=== PATIENT | female | born 1980 | race African-American/Black ===

== ENCOUNTER 2019-04-14 10:42 | Emergency (ER) | payer OTHER ==
--- NOTE | 2019-04-14 11:44 | ER Document Report ---
ED Medical Screen (RME) - General Chief Complaint: Chest Pain Stated Complaint: CHEST PAIN,SHORT OF BREATH Time Seen by Provider: 04/14/19 11:38 Notes: Patient is a 38-year-old female who presents emergency department with a chief complaint of chest pain. Patient reports that this occurred about 1 week ago and has been intermittent. Patient denies any trauma. Patient reports it is intermittent and occurs when bending over. Patient reports she has developed some shortness of breath. Patient denies cough, fever, cold-like symptoms. Patient denies nausea, vomiting or diarrhea. Patient has not had anything for her discomfort. TRAVEL OUTSIDE OF THE [place] IN LAST 30 DAYS: No - Related Data Allergies/Adverse Reactions: No Known Allergies Allergy (Verified 04/14/19 11:31) Past Medical History - Social History Frequency of alcohol use: Occasional Drug Abuse: None Physical Exam - Vital signs Vitals: Temp Pulse Resp BP Pulse Ox 98.6 F 73 16 115/63 100 04/14/19 11:00 04/14/19 11:04/14/19 11:04/14/19 11:00 04/14/19 11:00 - Cardiovascular Rhythm: Regular Heart sounds: Normal auscultation, S1 appreciated, S2 appreciated Notes: Reproducible left chest wall pain. Course - Re-evaluation Re-evalutation: 04/14/19 11:44 I have greeted and performed a rapid initial assessment of this patient. A comprehensive ED assessment and evaluation of the patient, analysis of test results and completion of the medical decision making process will be conducted by additional ED providers. - Vital Signs Vital signs: Temp Pulse Resp BP Pulse Ox 98.6 F 73 16 115/63 100 04/14/19 11:00 04/14/19 11:04/14/19 11:04/14/19 11:04/14/19 11:00
--- NOTE | 2019-04-14 11:58 | ER Document Report ---
ED General - General Chief Complaint: Chest Pain Stated Complaint: CHEST PAIN,SHORT OF BREATH Time Seen by Provider: 04/14/19 11:38 Notes: 38 old female presents with left parasternal chest pain reproducible when she presses on it worse with deep breathing for about 2 to 3 days. Constant since this morning. No cough, short of breath this morning but only with the breathing. No leg swelling, no tobacco very rare, and no external hormones no history of PE or VTE. No injuries. No history of coronary disease. TRAVEL OUTSIDE OF THE [place] IN LAST 30 DAYS: No - Related Data Allergies/Adverse Reactions: No Known Allergies Allergy (Verified 04/14/19 11:31) Past Medical History - Social History Smoking Status: Never Smoker Frequency of alcohol use: Occasional Drug Abuse: None Family History: None Patient has suicidal ideation: No Patient has homicidal ideation: No Review of Systems - Review of Systems Notes: REVIEW OF SYSTEMS GEN: Denies fever, chills, weight loss ENT: Denies sore throat, nasal discharge, ear pain EYES: Denies blurry vision, eye pain, discharge CV: Chest pain RESP: Denies cough, shortness of breath, wheezing GI: Denies abdominal pain, nausea, vomiting, diarrhea MSK: Denies joint pain/swelling, edema, SKIN: Denies rash, skin lesions LYMPH: Denies swollen glands/lymph nodes NEURO: Denies headache, focal weakness or numbness, dizziness PSYCH: Denies depression, suicidal or homicidal ideation PHYSICAL EXAMINATION General: No acute distress, well-nourished Head: Atraumatic, normocephalic ENT: Mouth normal, oropharynx moist, no exudates or tonsillar enlargement Eyes: Conjunctiva normal, pupils equal, lids normal Neck: No JVD, supple, no guarding CVS: Normal rate, regular rhythm, no murmurs Resp: No resp distress, equal and normal breath sounds bilaterally, left parasternal chest tenderness GI: Nondistended, soft, no tenderness to palpation, no rebound or guarding Ext: No deformities, no edema, normal range of motion in upper and lower ext Back: No CVA or midline TTP Skin: No rash, warm Lymphatic: No lymphadeopathy noted Neuro: Awake, alert. Face symmetric. GCS 15. Physical Exam - Vital signs Vitals: Temp Pulse Resp BP Pulse Ox 98.6 F 73 16 115/63 100 04/14/19 11:00 04/14/19 11:00 04/14/19 11:00 04/14/19 11:00 04/14/19 11:00 Course - Re-evaluation Re-evalutation: 04/14/19 12:16 Patient presents reproducible left-sided chest pain normal vital signs and a normal EKG. Doubt pericarditis given lack of positional change in EKG change, doubt PE given lack of risk factorsPE RC negative with no signs of right heart strain on EKG. Likely chest wall pathology. She already has naproxen will begin taking it today. No believe she requires a full work-up and can be discharged home safely. I have discussed with the patient there likely diagnosis, aftercare plan, follow-up plans and my usual and customary return precautions. They verbalized understanding of this. - Vital Signs Vital signs: Temp Pulse Resp BP Pulse Ox 97.7 F 69 18 116/57 L 100 04/14/19 12:02 04/14/19 12:02 04/14/19 12:02 04/14/19 12:02 04/14/19 12:02 - EKG Interpretation by Me EKG shows normal: Sinus rhythm Rate: Normal Rhythm: NSR Discharge - Discharge Clinical Impression: Chest wall pain Condition: Good Disposition: HOME, SELF-CARE Instructions: Chest Pain of Unclear Cause ([facility]) Additional Instructions: Please see your regular doctor or care team within 5 days. Take naproxen as we discussed. Ice or hot packs. Return if any worse.
--- NOTE | 2019-04-14 12:02 | RADIOLOGY REPORT (SQ) ---
EXAM DESCRIPTION: CHEST 2 VIEWS COMPLETED DATE/TIME: 04/14/2019 11:54 am REASON FOR STUDY: left sided chest wall pain COMPARISON: None. EXAM PARAMETERS: NUMBER OF VIEWS: two views TECHNIQUE: Digital Frontal and Lateral radiographic views of the chest acquired. RADIATION DOSE: NA LIMITATIONS: none FINDINGS: LUNGS AND PLEURA: No opacities, masses or pneumothorax. No pleural effusion. MEDIASTINUM AND HILAR STRUCTURES: No masses or contour abnormalities. HEART AND VASCULAR STRUCTURES: Heart normal size. No evidence for failure. BONES: No acute findings. HARDWARE: None in the chest. OTHER: No other significant finding. IMPRESSION: NO ACUTE RADIOGRAPHIC FINDING IN THE CHEST. TECHNICAL DOCUMENTATION: JOB ID: [id number] [employer]- All Rights Reserved Reading location - IP/workstation name: [email or web address]
[2019-04-14 12:04] VITALS: BP 116/57
--- NOTE | 2019-04-14 22:14 | EKG REPORT ---
SEVERITY:- NORMAL ECG - SINUS RHYTHM : Confirmed by: Brenda Moreno 14-Apr-2019 22:14:15
== END 2019-04-14 12:03 | disposition home or self-care (01) ==
LOC: ER 10:42
DX: R07.89 Other chest pain (principal)
CPT/HCPCS: 71046; 93005; 93010; 99285